=== PATIENT | male | born 1960 | race Caucasian/White ===

== ENCOUNTER → 2020-11-27 | Outpatient (CLI) | payer BC ==
[~2020-11-27] MED LIST: LEVOFLOXACIN750 MG PO; VENTOLIN HFA 66.7 GM INH
== END ==
LOC: CT 11:30
DX: R10.11 Right upper quadrant pain (principal); G89.29 Other chronic pain; R53.83 Other fatigue; K80.20 Calculus of gallbladder without cholecystitis without obstruction; R91.8 Other nonspecific abnormal finding of lung field
CPT/HCPCS: Q9967

== ENCOUNTER 2020-11-28 13:02 | Emergency (ER) | payer BC ==
[2020-11-28 14:12] LABS: HEMOGLOBIN 12.2 gm/dl (14.0-17.5); RED BLOOD COUNT 4.44 M/UL (4.20-5.50); WHITE BLOOD COUNT 22.2 K/UL (4.5-11.0)
[2020-11-28 15:05] LABS: BUN/CREATININE RATIO 16 (0-10)
[2020-11-28] MEDS ORDERED: LEVOFLOXACIN750 MG PO (23:23)
[2020-11-28] MEDS ORDERED: VENTOLIN HFA 66.7 GM INH (23:23)
== END 2020-11-28 23:33 | disposition left against medical advice (07) ==
LOC: ER1 13:02
PROVIDERS: Physician Assistant
DX: J18.8 Other pneumonia, unspecified organism (principal); R91.8 Other nonspecific abnormal finding of lung field; Z20.822 Contact with and (suspected) exposure to COVID-19; Z88.0 Allergy status to penicillin; Z87.891 Personal history of nicotine dependence
CPT/HCPCS: 80053; 82550; 82553; 83605; 83874; 84484; 85025; 87040; 93005; 96374; 99285; J2185; Q9967; U0002